=== PATIENT | female | born 1990 | race Caucasian/White ===

== ENCOUNTER 2018-11-17 17:27 | Emergency (ER) | payer OTHER ==
[~2018-11-17] VITALS: Ht 160 cm; Wt 66.3 kg
[2018-11-17] MEDS ORDERED: PREN1CHW6 PO (17:32)
[2018-11-17 18:30] LABS: BASO % 0.2 % (0.0-1.0); EOS # 0.1 10^3/uL (0.0-0.50); EOS % 0.8 % (0.0-3.0); HEMATOCRIT 39.6 % (36.0-47.0); HEMOGLOBIN 13.7 g/dl (12.0-15.5); LYMPH # 1.7 10^3/uL (1.5-6.5); LYMPH % 26.2 % (24.0-44.0); MEAN CORPUSCULAR HEMOGLOBIN 30.6 pg (27.0-33.0); MEAN CORPUSCULAR HGB CONC 34.6 g/dl (32.0-36.5); MEAN CORPUSCULAR VOLUME 88.4 fl (80.0-96.0); MONO # 0.6 10^3/uL (0.0-0.8); MONO % 8.5 % (0.0-5.0); NEUTROPHILS # 4.2 10^3/uL (1.8-7.7); NEUTROPHILS % 64.1 % (36.0-66.0); PLATELET COUNT, AUTOMATED 224 10^3/uL (150-450); RED BLOOD COUNT 4.48 10^6/uL (4.00-5.40); WHITE BLOOD COUNT 6.5 10^3/uL (4.0-10.0)
[2018-11-17 19:52] VITALS: BP 119/76
--- NOTE | 2018-11-17 20:19 | REPVR ---
EXAM: US First Trimester, Transabdominal EXAM DATE/TIME: 11/17/2018 7:16 PM CLINICAL HISTORY: 28 years old, female; Signs and symptoms; Lmp or gestational age (in weeks): 8w 0d; Other: Vaginal bleeding; TECHNIQUE: Imaging protocol: Real-time transabdominal obstetrical ultrasound of the maternal pelvis and a first trimester , less than 14 weeks 0 days, with image documentation. COMPARISON: No relevant prior studies available. FINDINGS: GESTATION: Gestation: An intrauterine gestational sac identified on the sagittal and transverse scan. A well-formed yolk sac is identified. This is very early in gestation and all parameters regarding the fetus cannot be resolved. Therefore a survey should be performed at 18-20 weeks gestation. Heart rate: There is cardiac activity within the pole estimated in the 168 beats per minute. BIOMETRY: Estimated gestational age: A pole has a crown-rump length that is consistent with 8 weeks 0 days. This was a skin surface scan which makes evaluation more limited. Right adnexa: The right ovary measures 3.9 CM by 3.4 CM and there are cystic areas. There is vascular flow and no evidence of torsion. Left adnexa: There is no evidence of left adnexal process. Left ovary cannot be identified. Intraperitoneal: There is no evidence of free fluid in the pelvis. IMPRESSION: 1. Intrauterine gestational sac with a pole estimated at 8 weeks 0 days. 2. The fetus cannot be completely assessed therefore a complete survey should be done at 18-20 weeks gestation. 3. Cystic activity of the right ovary. Left ovary not identified. Electronically signed by: Darryl Chilel On 11/17/2018 20:19:29 PM
== END 2018-11-17 20:01 | disposition home or self-care (01) ==
LOC: M ED 17:27
DX: O20.0 Threatened abortion (principal); Z3A.08 8 weeks gestation of pregnancy

== ENCOUNTER 2019-04-10 22:03 | Outpatient (CLI) | payer OTHER ==
[~2019-04-10 22:03] MED LIST: PREN1CHW6 PO
[2019-04-10] MEDS ORDERED: KETOROLAC 30 MG/ML VIAL (J1885) IM ONE (23:30)
[2019-04-10] MEDS ORDERED: KETOROLAC 30 MG/ML VIAL (J1885) IV ONE (23:30)
[2019-04-10] MEDS ORDERED: GI COCKTAIL 50ML BTL(HYOSCYAMINE/MAALOX/LIDOCAINE VISCOUS)(1:3:1) PO ONE (23:30)
--- NOTE | 2019-04-10 23:45 | IPNPDOC ---
Text Note Date of Service The patient was seen on 04/10/19. NOTE OB Considerations: - Glucose intolerance, abnormal 1hr, needs 3hr GTT - Heartburn 29yo G1 at 28+2wks (KHOA [id number]) presents with abdominal pain x 5 hrs. She reports that the pain is constant, "tense" pain 5/10, with sharp pains that radiate to mid back, 6-7/10. She reports certain positions make it worse, nothing makes it better - has tried 1000mg Tylenol and Heat Packs. She reports the pain is making her slightly nauseated, but denies vomiting. She had a chicken sandwich at lunch. She denies sick contacts, recent travel. She denies fevers, chills, dysuria, hematuria, vaginal bleeding, ctx, LOF, constipation/diarrhea, or vaginal discharge. She reports regular bowel movements. She reports hydrating well, 138ml of water today. She reports active movement. VS: Reviewed, normotensive, nontachycardic, afebrile GEN: WNWD, NAD ABD: Soft, Gravid, TTP epigastric area, mildly TTP on the left and right sides, no peritoneal signs, negative Arnold's and McBurney's signs EXT: No edema TAUS: ADELA 19.1cm, cephalic, +FCA with active movement noted with breathing motions, Anterior Placenta SSE: NEFG, mod physiologic discharge, no vaginal bleeding or lesions, cervix appeared closed DCE: Closed, Thick, High Microscopy: No Clue Cells, Yeast or Trichomonas FHR: 135bpm, moderate variability, + accelerations, - decelerations - RNST, appropriate for gestational age TOCO: 1 ctx Toradol 15mg IM x1 GI Cocktail x1 A/P: SIUP at 28wks with abd pain, no concern for PTL. GI Cocktail and Toradol IM improved pain and she desires to go home. NST reactive for gestational age >28wks and <32wks. [place] and exam reassuring without concern for PTL. No periton eal signs or concern for Appendicitis, Cholecystitis/Cholelithiasis. Epigastric tenderness likely due to heartburn vs viral gastroenteritis. PO tolerant. - Discussed strict return and PTL precautions - Discussed Kick Counts - Discussed hydrations - Tylenol 1000mg q6hr PRN (do not exceed >3000mg in 24hrs) - Follow up in clinic for next scheduled appointment DO YESSICA Amin CRYSTAL B. DO Apr 10, 2019 23:45
== END 2019-04-11 00:25 | disposition home or self-care (01) ==
LOC: M LDO 22:03
PROVIDERS: ATTEND Obstetrics & Gynecology
DX: O26.893 Other specified pregnancy related conditions, third trimester (principal); R10.84 Generalized abdominal pain; Z3A.28 28 weeks gestation of pregnancy
CPT/HCPCS: 96372; G0378; G0463; J1885

== ENCOUNTER 2019-04-15 21:44 | Emergency (ER) | payer OTHER ==
[~2019-04-15] VITALS: Ht 160 cm; Wt 73.2 kg
[2019-04-15 21:45] VITALS: BP 133/84
[2019-04-15] MEDS ORDERED: ACET-683 PO (21:48)
[2019-04-15] MEDS ORDERED: AUGMENTIN 875 MG TAB PO ONE (22:15)
[2019-04-15] MEDS ORDERED: NORCO 5/325MG TABLET (BULK FOR ED) PO ONE (22:15)
[2019-04-15] MEDS ORDERED: AUGM875T28 PO (22:19)
[2019-04-15] MEDS ORDERED: NORC1TAB7 PO (22:28)
== END 2019-04-15 22:48 | disposition home or self-care (01) ==
LOC: M ED 21:44
DX: K04.7 Periapical abscess without sinus (principal)

== ENCOUNTER 2019-05-23 10:08 | Outpatient (CLI) | payer OTHER ==
[2019-05-23] VITALS (7 sets, daily range): BP systolic 101–140; BP diastolic 57–81
[~2019-05-23] VITALS: Ht 160 cm; Wt 77.9 kg
[~2019-05-23 10:08] MED LIST changes: +ACET-683 PO; +AUGM875T28 PO; +NORC1TAB7 PO
[2019-05-23] MEDS ORDERED: ACET25TA12 PO (10:35)
[2019-05-23] MEDS ORDERED: NOVOINJ13 SC (10:40)
[2019-05-23] MEDS ORDERED: NOVOINJ12 SC ×2 (10:40)
[2019-05-23] MEDS ORDERED: INSUN SC (10:40)
[2019-05-23] MEDS ORDERED: BETAMETHASONE SOLUSPAN 6MG/ML INJ 5ML (J0702) IM SCH (11:00)
[2019-05-23] MEDS: TERBUTALINE SULFATE 1 MG/ML VIAL (J3105) SC SCH ×4 (11:16→12:30)
[2019-05-23] MEDS: LR 1,000 ML IV SCH ×2 (11:37→12:38)
[2019-05-23 11:43] LABS: AMORPHOUS SEDIMENT SMALL (NEGATIVE); APPEARANCE, URINE CLEAR (CLEAR); BACTERIA, URINE AUTO NEGATIVE (NEGATIVE); BILIRUBIN, URINE AUTO NEGATIVE (NEGATIVE); BLOOD, URINE BLOOD NEGATIVE (NEGATIVE); COLOR, URINE YELLOW (YELLOW); GLUCOSE, URINE (UA) AUTO 1+ mg/dL (NEGATIVE); KETONE, URINE AUTO NEGATIVE (NEGATIVE); LEUKOCYTE ESTERASE, URINE AUTO TRACE (NEGATIVE); NITRITE, URINE AUTO NEGATIVE (NEGATIVE); PROTEIN, URINE AUTO NEGATIVE (NEGATIVE); RBC, URINE AUTO 0 /HPF (0-3); SPECIFIC GRAVITY URINE AUTO 1.005 (1.002-1.035); SQUAMOUS EPITHELIAL CELL UR AU 2 /HPF (0-6); UROBILINOGEN, URINE AUTO 0.2 mg/dL (0.0-2.0); WBC, URINE AUTO 3 /HPF (0-3)
[2019-05-23] MEDS ORDERED: FLUCONAZOLE 50MG TABLET PO ONE (12:00)
== END 2019-05-23 16:05 | disposition home or self-care (01) ==
LOC: M LDO 10:08
PROVIDERS: ATTEND Advanced Practice Midwife
DX: O24.414 Gestational diabetes mellitus in pregnancy, insulin controlled (principal); O47.03 False labor before 37 completed weeks of gestation, third trimester; Z3A.34 34 weeks gestation of pregnancy
CPT/HCPCS: 59025; 76815; 81001; 87086; 96360; 96361; 96372; G0378; G0463; J0702; J3105

== ENCOUNTER 2019-05-24 11:31 | Outpatient (CLI) | payer OTHER ==
[~2019-05-24] VITALS: Ht 160 cm; Wt 77.9 kg
[~2019-05-24 11:31] MED LIST changes: +ACET25TA12 PO; +BETAMETHASONE SOLUSPAN 6MG/ML INJ 5ML (J0702) IM ONE; +INSUN SC; +NOVOINJ12 SC; +NOVOINJ13 SC
[2019-05-24 11:41] VITALS: BP 134/77
== END 2019-05-24 12:35 | disposition home or self-care (01) ==
LOC: M LDO 11:31
PROVIDERS: ATTEND Registered Nurse Maternal Newborn
DX: Z34.83 Encounter for supervision of other normal pregnancy, third trimester (principal)
CPT/HCPCS: 59025; 96372; G0378; G0463; J0702

== ENCOUNTER 2019-09-27 21:39 | Emergency (ER) | payer OTHER ==
[~2019-09-27] VITALS: Ht 160 cm; Wt 75.4 kg
[~2019-09-27 21:39] MED LIST changes: -BETAMETHASONE SOLUSPAN 6MG/ML INJ 5ML (J0702) IM ONE
[2019-09-27 21:40] VITALS: BP 133/86
[2019-09-27] MEDS ORDERED: BACT800T5 PO (22:04)
[2019-09-27] MEDS ORDERED: BACTRIM 160MG/800MG DS TAB PO ONE (22:15)
== END 2019-09-27 22:29 | disposition home or self-care (01) ==
LOC: M ED 21:39
DX: L03.116 Cellulitis of left lower limb (principal); Z97.5 Presence of (intrauterine) contraceptive device

== ENCOUNTER 2020-01-10 16:16 | Emergency (ER) | payer OTHER ==
[~2020-01-10] VITALS: Ht 160 cm; Wt 72.7 kg
[~2020-01-10 16:16] MED LIST changes: +BACT800T5 PO
[2020-01-10] MEDS ORDERED: IBUPROFEN 600MG TAB PO ONE (17:45)
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
[2020-01-10 18:51] VITALS: BP 123/77
== END 2020-01-10 19:08 | disposition home or self-care (01) ==
LOC: EDBD 16:16 → M ED 16:16
DX: S16.1XXA Strain of muscle, fascia and tendon at neck level, initial encounter (principal); S40.012A Contusion of left shoulder, initial encounter; V49.49XA Driver injured in collision with other motor vehicles in traffic accident, initial encounter; Y92.410 Unspecified street and highway as the place of occurrence of the external cause

== ENCOUNTER 2020-02-11 18:20 | Emergency (ER) | payer OTHER | END 2020-02-11 18:30 | disposition home or self-care (01) | LOC: M ED 18:20 | DX: J06.9 Acute upper respiratory infection, unspecified (principal) | CPT/HCPCS: 99283; U0002 ==